=== PATIENT | female | born 1940 | race Caucasian/White ===

== ENCOUNTER 2018-09-17 18:09 | Emergency (ER) | payer OTHER ==
[~2018-09-17] VITALS: Ht 170 cm; Wt 80.3 kg
--- NOTE | ~2018-09-17 | EKG ---
[place], [place] ELECTROCARDIOGRAM REPORT NAME: TOMER MEDINA UNIT #: [id number] ROOM: DOCTOR: ELMER DRAFT REPORT BIRTHDATE: [birth year] [facility] Test Date: 2018-09-17 Test Time: 18:46:04 Pat Name: TOMER MEDINA Department: Room: Gender: F [employer]acker: : [id number] Requested By: RUDDY RANDHAWA Order Number: [id number] Reading MD: Measurements Intervals [place] Rate: 75 P: 123 NE: 320 QRS: -16 QRSD: 104 T: 85 QT: 495 QTc: 553 Interpretive Statements Sinus rhythm Prolonged NE interval Borderline left axis deviation Borderline T abnormalities, anterior leads Prolonged QT interval No previous ECG available for comparison CM:EKGRPT:ELECTROCARDIOGRAM REPORT [id number] RUDDY PAYNE DRAFT REPORT RUDDY BYERS
[2018-09-17 19:34] LABS: ACT PARTIAL THROMBO TIME 22.6 SECONDS (20.0-32.1); INTERNATIONAL NORM RATIO 0.9 (2.0-3.5)
[2018-09-17 19:40] LABS: BASO % 0.3 % (0.0-1.0); EOS # 0.2 10*3/uL (0.0-0.4); EOS % 1.7 % (1.0-4.0); HEMATOCRIT 40.3 % (37.0-47.0); HEMOGLOBIN 13.2 g/dl (12.0-16.0); LYMPH % 16.4 % (27.0-41.0); MEAN CELL VOLUME 94.8 fl (81.0-99.0); MEAN CORPUSCULAR HGB 31.1 pg (27.0-31.0); MEAN CORPUSCULAR HGB CONC 32.8 g/dl (33.0-37.0); MEAN PLATELET VOLUME 10.8 fl (9.6-12.3); MONO # 0.9 10*3/uL (0.1-1.0); MONO % 7.3 % (3.0-9.0); NEUT # 8.8 10*3/uL (2.3-7.9); PLATELET COUNT AUTOMATED 220 10*3/uL (130-400); RED BLOOD COUNT 4.25 10*6/uL (4.10-5.10); RED CELL DISTRI WIDTH 13.2 % (0-14.5); WHITE BLOOD COUNT 11.9 10*3/uL (4.8-10.8)
[2018-09-17 19:56] LABS: ALBUMIN 4.2 gm/dl (3.1-4.5); ALKALINE PHOSPHATASE 78 U/L (45-117); BUN 24 mg/dl (7-24); CHLORIDE 106 mmol/L (98-107); CREATININE 1.26 mg/dL (0.55-1.02); LIPASE 165 U/L (73-393); POTASSIUM 3.7 mmol/L (3.5-5.1); SGOT/AST 18 IU/L (3-35); SGPT/ALT 41 U/L (12-78); SODIUM 138 mmol/L (136-145); TOTAL PROTEIN 7.2 gm/dL (6.4-8.2); TROPONIN I < 0.015 ng/ml (<0.045)
[2018-09-17 20:22] LABS: BILIRUBIN NEGATIVE (NEGATIVE); BLOOD NEGATIVE (NEGATIVE); CLARITY SL CLOUDY (CLEAR); COLOR YELLOW (YELLOW); GLUCOSE NEGATIVE (NEGATIVE); KETONE TRACE (NEGATIVE); LEUKO ESTERASE TRACE (NEGATIVE); NITRITE NEGATIVE (NEGATIVE); SPECIFIC GRAVITY >= 1.030 (1.005-1.030); UROBILINOGEN 0.2 E.U./dl (0.2-1.0)
[2018-09-17 20:57] LABS: BACTERIA TRACE; CALCIUM OXALATE CRYSTALS 1+; EPITHELIAL CELLS 0-2; WBC 0-2 wbc/hpf (0-5)
[2018-09-17 20:58] LABS: MUCOUS 1+
== END 2018-09-17 21:30 | disposition left against medical advice (07) ==
LOC: ED 18:09
PROVIDERS: Physician Assistant
DX: R42 Dizziness and giddiness (principal); R06.02 Shortness of breath; R10.9 Unspecified abdominal pain; I10 Essential (primary) hypertension; Z88.5 Allergy status to narcotic agent; Z86.73 Personal history of transient ischemic attack (TIA), and cerebral infarction without residual deficits